=== PATIENT | female | born 1995 | race Caucasian/White ===

== ENCOUNTER → 2017-07-05 09:47 | Outpatient (CLI) | payer SELFPAY ==
[2017-07-05 13:49] LABS: hCG Titer Quant., Serum < 1 mIU/mL (<9 non-preg)
[2017-07-05 13:54] LABS: Free T3 2.8 pg/mL (2.18-3.98); Hemoglobin A1c 5.2 % (4.2-6.3); Prolactin 2.8 ng/mL; T4 Free Direct 0.92 ng/dL (0.76-1.46); Thyroid Stim Hormone (TSH) 0.55 uIU/mL (0.358-3.74)
[2017-07-05 13:57] LABS: Progesterone Level 0.38 ng/mL (See Comment)
[2017-07-07 14:52] LABS: HPV Reflexed? NOT INDICATED
== END ==
PROVIDERS: Visit Provider Obstetrics & Gynecology
DX: Z12.4 Encounter for screening for malignant neoplasm of cervix (principal); N92.6 Irregular menstruation, unspecified
CPT/HCPCS: 36415; 82670; 83036; 84144; 84146; 84403; 84439; 84443; 84481; 84702; 88175; G0145

== ENCOUNTER → 2018-02-15 10:51 | Outpatient (CLI) | payer SELFPAY ==
[2018-02-15 13:03] LABS: Estradiol 101.1 pg/mL
[2018-02-15 13:17] LABS: Progesterone Level 23.56 ng/mL (See Comment)
--- OUTSIDE RECORDS SUMMARY | 2018-04-12 13:11 | XMS RPT_ITS ---
:1995 Author Organization OHIP Care Team Providers Name Role Phone CYRIL PACKER Admitting Unavailable CYRIL PACKER Attending Unavailable CYRIL PACKER Primary Care Unavailable NO, DOCTOR ON Consulting Unavailable Cyril Packer Attending Unavailable Cyril Packer Attending Unavailable PROBLEMS PROBLEMS DATE TYPE CONDITION / CODE ATTENDING STATUS SOURCE 07/05/2017 Unknown Z12.4 - Encounter Cyril Packer for screening for [facility] neoplasm of Repository cervix / Z12.4(ICD-10) 07/05/2017 Unknown N92.6 - Irregular Cyril Packer Active Leroy menstruation, [facility] unspecified / Hospital N92.6(ICD-10) Repository PROCEDURES PROCEDURES No Procedure Records FoundRESULTS RESULTS ESTRADIOL Collected: 02/15/2018 Status: F Source: LEROY 10:52 AM [facility] REPOSITORY TYPE CODE TESTS RESULT OUT OF RANGE REFERENCE UNITS LAB L3300.1750 pg/mL Normal ESTRADIOL 101.1 Result Comment: NORMAL REFERENCE RANGES FEMALE FOLLICULAR 21.4 - 164.8 pg/mL MID-CYCLE PEAK 49.9 - 367.2 pg/mL LUTEAL 40.2 - 259.0 pg/mL POST-MENOPAUSAL ON MHT <11.0 - 462.1 pg/mL NOT ON MHT <11.0 - 58.3 pg/mL MALE <11.0 - 52.5 pg/mL NOTE: [facility] HAS CONFIRMED THE DRUG FULVETRANT (FASLODEX) MAY CAUSE FALSELY ELEVATED ESTRADIOL RESULTS WHEN USING THIS TEST METHOD. IF PATIENT IS TAKING FULVESTRANT AN ALTERNATIVE METHOD SHOULD BE USED TO DETERMINE ESTRADIOL CONCENTRATION. Performed By: #### L3300.1750 #### [facility] [address] [place], [address] PROGESTERONE LEVEL Collected: 02/15/2018 Status: F Source: [place]ER[place] 10:52 AM [facility] [place] TYPE CODE TESTS RESULT OUT OF REFERENCE UNITS RANGE LAB L509.4001 See Comment ng/mL Progesterone Normal 23.56 Result Comment: Progesterone Reference Table: UNITS Female: Follicular 0.15 - 1.40 ng/mL Luteal 3.34 - 25.56 ng/mL Mid-luteal 4.44 - 28.03 ng/mL Postmenopausal 0.0 - 0.73 ng/mL : 1st Trimester 11.22 - 90.00 ng/mL 2nd Trimester 25.55 - 89.40 ng/mL 3rd Trimester 48.40 -422.50 ng/mL Performed By: #### L509.4001 #### [facility] [address] [place], [address] US PELVIC Observed: 08/04/2017 Status: F Source: TRACY VELAZQUEZ 2:58 PM [place] [address] Patient: MARIANA ACOSTA Phone#: : [phone] Age: 22 Gender: F Pt. Type: Out Account: [id number] Location: Ordering: CYRIL PACKER Exam Date: 08/04/2017/13:03 Family Phys: NO DOCTOR Charge Code: [id number] Physician: [place] Order #: [id number] DLP Dose#: PROCEDURE: PELVIC ULTRASOUND, TRANSABDOMINAL COMPARISON: None. INDICATIONS: Ovarian Cyst TECHNIQUE: Pelvic ultrasound was performed in the usual manner. FINDINGS: UTERUS: Size is 8.2 x 3.6 x 4.8 cm with unremarkable appearance. Endometrial thickness is 2 mm. ADNEXAE: Normal bilateral appearance with no significant masses. The left ovary measures 3.3 x 3.8 x 3.2 cm with a volume of 21.5 mL. The right ovary measures 4.1 x 3.8 x 2.9 cm. There is a cyst in the right ovary it measures 2.7 x 2.5 x 1.5 cm. CUL-DE-SAC: Normal. No fluid or mass. OTHER: Negative. CONCLUSION: 1. Small right ovarian cyst. Dictated by: Tere Boo MD on 08/04/2017 at 15:33 Approved by: Tere Boo MD on 08/04/2017 at 15:33 HCG TITER QUANT., Collected: 07/05/2017 Status: F Source: LEROY SERUM 9:53 AM [facility] [place] TYPE CODE TESTS RESULT OUT OF RANGE REFERENCE UNITS LAB L700.8000 <9 non-preg mIU/mL Normal HCG < 1 QUANT. Performed By: #### L700.8000 #### [facility] [address] [place], [place], [address] HEMOGLOBIN A1C Collected: 07/05/2017 Status: F Source: [place] 9:53 AM [facility] [place] TYPE CODE TESTS RESULT OUT OF RANGE REFERENCE UNITS LAB L501.9985 4.2-6.3 % Normal HGB A1C 5.2 Performed By: #### L501.9985 #### [facility] [address] [place], [address] FREE T3 Collected: 07/05/2017 Status: F Source: [place]Y 9:53 AM [facility] [place] TYPE CODE TESTS RESULT OUT OF RANGE REFERENCE UNITS LAB L501.66343 2.18-3.98 pg/mL Normal FREE T3 2.8 Performed By: #### L501.49231, L501.9520, L506.0400, L3100.5420, L3300.1750 #### [facility] [address] [place], [address] THYROID STIM HORMONE Collected: 07/05/2017 Status: F Source: LEROY (TSH) 9:53 AM [facility] [place]ORY TYPE CODE TESTS RESULT OUT OF RANGE REFERENCE UNITS LAB L501.9520 0.358-3.74 uIU/mL Normal TSH 0.55 Performed By: #### L501.02994, L501.9520, L506.0400, L3100.5420, L3300.1750 #### [facility] [address] [place], [place], [address] T4 FREE DIRECT Collected: 07/05/2017 Status: F Source: CATHERINE 9:53 AM [facility] [place] TYPE CODE TESTS RESULT OUT OF RANGE REFERENCE UNITS LAB L506.0400 0.76-1.46 ng/dL Normal T4 FREE 0.92 DIRECT Performed By: #### L501.47200, L501.9520, L506.0400, L3100.5420, L3300.1750 #### [facility] [address] [place], [place], [id number] PROLACTIN Collected: 07/05/2017 Status: F Source: CATHERINE 9:53 AM [facility] [place]ORY TYPE CODE TESTS RESULT OUT OF RANGE REFERENCE UNITS LAB L3100.5420 ng/mL Normal PROLACTIN 2.8 Result Comment: NORMAL REFERENCE RANGES FEMALE NON- 2.2 - 30.3 ng/mL 8.1 - 347.6 ng/mL POST-MENOPAUSAL 0.7 - 31.5 ng/mL MALE 2.5 - 17.4 ng/mL NEW TEST METHOD AND REFERENCE RANGES AUGUST 08, 2011 Performed By: #### L501.96972, L501.9520, L506.0400, L3100.5420, L3300.1750 #### [facility] [address] [place], [place], [id number] ESTRADIOL Collected: 07/05/2017 Status: F Source: CATHERINE 9:53 AM [facility] [place]ORY TYPE CODE TESTS RESULT OUT OF RANGE REFERENCE UNITS LAB L3300.1750 pg/mL Normal ESTRADIOL 35.0 Result Comment: NORMAL REFERENCE RANGES FEMALE FOLLICULAR 21.4 - 164.8 pg/mL MID-CYCLE PEAK 49.9 - 367.2 pg/mL LUTEAL 40.2 - 259.0 pg/mL POST-MENOPAUSAL ON MHT <11.0 - 462.1 pg/mL NOT ON MHT <11.0 - 58.3 pg/mL MALE <11.0 - 52.5 pg/mL NOTE: [facility] HAS CONFIRMED THE DRUG FULVETRANT (FASLODEX) MAY CAUSE FALSELY ELEVATED ESTRADIOL RESULTS WHEN USING THIS TEST METHOD. IF PATIENT IS TAKING FULVESTRANT AN ALTERNATIVE METHOD SHOULD BE USED TO DETERMINE ESTRADIOL CONCENTRATION. Performed By: #### L501.71235, L501.9520, L506.0400, L3100.5420, L3300.1750 #### [facility] [address] [place], [address] TESTOSTERONE, SERUM TOTAL Collected: 07/05/2017 Status: F Source: CATHERINE 9:53 AM [facility] [place] TYPE CODE TESTS RESULT OUT OF REFERENCE UNITS RANGE LAB L509.3000 ng/dL Testosterone Normal 27.32 Result Comment: NORMAL REFERENCE RANGES MALE AGE <50 123.06 - 813.86 ng/dL MALE AGE >50 89.98 - 780.10 ng/dL FEMALE PREMENOPAUSE AGE 21 - 60 9.01 - 47.94 ng/dL FEMALE POSTMENOPAUSE AGE 45 - 89 <7.00 - 45.62 ng/dL REFERENCE RANGE AND METHODOLOGY CHANGED 03/08/2017 Performed By: #### L509.3000, L509.4001 #### [facility] [address] [place], [address] PROGESTERONE LEVEL Collected: 07/05/2017 Status: F Source: CATHERINE 9:53 AM [facility] [place] TYPE CODE TESTS RESULT OUT OF REFERENCE UNITS RANGE LAB L509.4001 See Comment ng/mL Progesterone Normal 0.38 Result Comment: Progesterone Reference Table: UNITS Female: Follicular 0.15 - 1.40 ng/mL Luteal 3.34 - 25.56 ng/mL Mid-luteal 4.44 - 28.03 ng/mL Postmenopausal 0.0 - 0.73 ng/mL : 1st Trimester 11.22 - 90.00 ng/mL 2nd Trimester 25.55 - 89.40 ng/mL 3rd Trimester 48.40 -422.50 ng/mL Performed By: #### L509.3000, L509.4001 #### [facility] [address] [place], [address] PAP I-G W/RFX HRHPV Collected: 07/05/2017 Status: F Source: [place] 9:30 AM [facility] [place] Order Comment: CYTOLOGY INFORMATION: - CLINICAL INFORMATION: - DATE LMP/MENOPAUSE: 06/27/17 LMP - COLLECTION VIAL: Thin Prep Vial - SOCK LINING STITCHER SOURCE: CERVICAL/ENDOCERVICAL - COLLECTION TECHNIQUE: BRUSH/SPATULA Specimen Comment: [id number] Specimen Comment: No. of containers..01 ThinPrep Vial TYPE CODE TESTS RESULT OUT OF RANGE REFERENCE UNITS LAB L7400.0800 . Normal DIAGN Comment Result Comment: NEGATIVE FOR INTRAEPITHELIAL LESION AND MALIGNANCY. LAB L7400.0900 . Normal ADEQ Comment Result Comment: Satisfactory for evaluation. Endocervical and/or squamous metaplastic cells (endocervical component) are present. LAB L7400.1400 . Normal PERFORM Comment Result Comment: Cheryl Thornton, Medical Office Worker (ASCP) LAB L7400.2575 . Normal TEST METHOD Comment Result Comment: This liquid based ThinPrep(R) pap test was screened with the use of an image guided system. LAB L7400.2600 . Normal . COMM LAB L7400.2700 . Normal PAPSMR Comment Result Comment: The Pap smear is a screening test designed to aid in the detection of premalignant and malignant conditions of the uterine cervix. It is not a diagnostic procedure and should not be used as the sole means of detecting cervical cancer. Both false-positive and false-negative reports do occur. LAB L7400.2800 . Normal HPV RFLX Comment Result Comment: The HPV DNA reflex criteria were not met with this specimen result therefore, no HPV testing was performed. Performed at: [facility] [id number] Training Consultant: Santa Garrison MD, Phone: [phone] Performed By: #### L7400.0350 #### [facility] (refer to report for specific site) refer to report for address and phone number ALLERGIES ALLERGIES DATE TYPE / CODE NAME / CODE REACTION SEVERITY SOURCE Miscellaneous No Known Drug Moderate Tracy Pomeremikey Allergy/[id number](S Allergies ([facility]) Modifier) Hospital (Qualifier Repository Value) ENCOUNTERS ENCOUNTERS ADMIT/DISCHARGE ACCOUNT ADMITTING ENCOUNTER LOCATION SOURCE NUMBER CLASS 02/15/2018 [id number] Ambulatory [address] ing:[place] Repository 08/04/2017/ [id number] CYRIL PACKER Ambulatory [address] Repository 07/05/2017 [id number] Ambulatory [address] ing:[place] Repository PAYERS PAYERS ENCOUNTER GUARANTOR PAYER SUBSCRIBER SOURCE 02/15/2018 MARIANA EVERETT99 Primary NOT GIVENUNK [facility] Insurance:SELF PAY [address] [address]: Number: Effective Repository Date:2018-02-15 () 08/04/2017 MARIANA Irwin Primary MARIANA HUB: Insurance:RADIOLOGY BERLINDOB: [facility] [id number] [facility] Number: [id number] [facility] [address] Effective Date: RD Repository [address] [place] [id number]: [place] [phone] () 07/05/2017 MARIANA EVERETT99 Primary NOT GIVENUNK [facility] [address] Insurance:SELF PAY [address] [address]Xex: Number: Effective Repository Date:2017-07-05 ()
== END ==
PROVIDERS: Visit Provider Obstetrics & Gynecology
DX: N92.6 Irregular menstruation, unspecified (principal)
CPT/HCPCS: 36415; 82670; 84144